=== PATIENT | male | born 1990 | race Caucasian/White ===

== ENCOUNTER 2019-03-21 23:59 | Emergency (ER) | payer MEDICAID, SELFPAY ==
[2019-03-21 23:59] VITALS: BP 130/87; PULSE 76; RESP 15; TEMP 36.4; O2SAT 97; BMI 26.4
--- NOTE | 2019-03-22 00:34 | ED.VISSUMM ---
- ER Visit Summary Date of Service: 03/22/19 Chief Complaint: Abdominal pain History of Present Illness: The patient is a 29 M with lower abdominal pain. The pain is over his lower hemiabdomen and does not radiate. It started yesterday, and has been constant. He said he never had this before. Associated with diarrhea. He had a recent upper respiratory infection and was diagnosed with influenza. He was not on antibiotics. He denies any bleeding. Denies vomiting. Denies any fevers. Denies urinary symptoms. Denies back pain. Denies weakness or numbness, but he does have bilateral hip pain which she attributes to dry heaving. Denies trauma. Physical Examination: Afebrile and vital signs unremarkable. Alert and oriented. No acute distress. Heart regular. Lungs clear. Abdomen is tender of the lower hemiabdomen. No guarding or rebound. Skin appears normal without jaundice or pallor. Normal gait. No shortening or abnormal rotation of his legs. Good range of motion. Test Results: Labs, urine, CT were ordered. Emergency Department Course and Treatment: Patient presents with lower abdominal pain and GI symptoms. He is tender. I am concerned for diverticulitis, appendicitis, and other GI pathology. We will also check urine. I ordered fluids, morphine, and Zofran while awaiting results. I was notified by nursing that the patient did not want to stay, and did not want testing. He was alert and oriented. He voiced understanding that we were concerned for diverticulitis and appendicitis. Patient did not receive any medication or testing. Patient signed out AGAINST MEDICAL ADVICE. Treatment Plan: As above Disposition: AGAINST MEDICAL ADVICE Impression: 1. Abdominal pain This note was generated with [employer] dictation software. It may contain incorrect words, spelling, and punctuation that were not noted in review of the chart prior to signing ED Disposition - Plan for ED Patient: Referrals: Jian Brennan MD [Primary Care Provider] -
--- NOTE | 2019-03-22 00:35 | ED.RN ---
This RN went in to start IV and fluids as PTs assigned nurse was off the floor. PT initially refused IV fluids and ultimately all testing. Spoke with Dr. Johnson who was concerned about an appendicitis or diverticulitis. said to have PT sign out AMA. Discussed with PT standard protocols and orders for abdominal pain. PT stated I knew I should have gone to [place]. PT then stated he wanted to go to [facility] and get a laxative. AMA paperwork signed by , myself and PT. PT received a copy, ambulated to [facility] with a steady and independent gait.
== END 2019-03-22 00:35 | disposition left against medical advice (07) ==
LOC: ED 03-22 00:46
PROVIDERS: Emergency Provider Emergency Medicine; PCP Family Medicine
DX: R10.30 Lower abdominal pain, unspecified (principal); Z72.0 Tobacco use

== ENCOUNTER 2019-07-09 08:55 | Observation (INO) | payer MEDICAID, SELFPAY ==
[2019-07-09] VITALS (11 sets, daily range): BP systolic 97–125; BP diastolic 55–84; PULSE 83–109; RESP 16–20; TEMP 36.5–37.3; O2SAT 93–104; BMI 25.1
--- NOTE | 2019-07-09 09:16 | CT_ITS ---
We are attempting to reach an attending provider to discuss findings. An addendum with communication details will be sent when the communication is complete. STUDY: CT ABDOMEN AND PELVIS WITH CONTRAST REASON FOR EXAM: Male, 29 years old. RLQ PAIN RADIATION DOSAGE (If Supplied By Facility): CTDIvol = ( 11.62 ) mGy, DLP = ( 789.10 ) mGycm TECHNIQUE: Transaxial images were obtained from the dome of the diaphragm to the symphysis pubis without oral contrast. 100ml isovue 300 was administered. Sagittal and coronal images were reconstructed. Individualized dose optimization techniques were used for this CT. COMPARISON: None. FINDINGS: There is decreased attenuation of the liver consistent with steatosis. Normal gallbladder and extrahepatic biliary system. Normal spleen. Normal pancreas. Normal bilateral adrenal glands. Normal right kidney. Normal left kidney. Normal visualized stomach. Normal small intestine. The colon demonstrates thickening at the cecum and appendiceal orifice there is thickening of the appendix up to 12 mm. There is surrounding trace amount of free fluid. Findings are consistent with appendicitis. There is no evidence of perforation or abscess Normal abdominal aorta. Normal inferior vena cava. Normal retroperitoneum. Normal urinary bladder. Normal abdominal wall. Normal osseous structures. CT/Abdomen/Pelvis WITH Contrast IMPRESSION: Cecum and appendiceal thickening with surrounding edema. Leading differential consideration is acute appendicitis. There is no evidence of perforation or abscess Electronically Signed: Fatimah Hernandez MD at 12:15 EDT Tel , Service support ,
--- NOTE | 2019-07-09 09:18 | ED.DCSUM_ITS ---
- ER Visit Summary Date of Service: 07/09/19 Chief Complaint: Abdominal pain History of Present Illness: The patient is a 29 M presenting with abdominal pain. He states this started this morning. He has had nausea and vomiting. Denies diarrhea or constipation. Pain is in the lower abdomen. Denies fever. No other complaints. Physical Examination: Vitals are stable. Patient is afebrile. Alert no acute distress. HEENT exam is unremarkable. Neck is supple. Lungs are clear and equal bilaterally. Heart is regular rate and rhythm. Abdomen is soft bilateral lower quadrant tenderness with voluntary guarding, no rebound Extremities are unremarkable. Skin is warm and dry. Remainder of exam is unremarkable. Emergency Department Course and Treatment: Patient given IV fluids, morphine, Zofran. CBC shows white count 12.5. Chemistries unremarkable other than glucose 136. Liver lipase are normal. Urinalysis shows 0-5 white blood cells, [address] abdomen/pelvis shows cecum and appendiceal thickening with surrounding edema. Leading differential consideration is acute appendicitis. There is no evidence of perforation or abscess. Patient was given Zosyn IV. COVID is ordered and is pending. Discussed with Dr. Pugh and patient will be admitted. Disposition: Admission Impression: Acute appendicitis This note was generated with [employer] dictation software. It may contain incorrect words, spelling, and punctuation that were not noted in review of the chart prior to signing ED Disposition - Plan for ED Patient: Referrals: Jian Brennan MD [Primary Care Provider] -
[2019-07-09 09:29] LABS: Absolute Lymphocyte Count 1.28 X10^3/uL (0.83-4.51); Absolute Neutrophil Count 10.3 X10^3/uL (2.0-7.7); Basophil# 0.05 X10^3/uL; Basophil% 0.4 % (0-1); Eosinophil# 0.08 X10^3/uL; Eosinophils% 0.6 % (0-5); Hematocrit 51.3 % (40-54); Hemoglobin 16.3 g/dL (13.0-16.5); Lymphocyte # 1.28 X10^3/ul (4.0); Lymphocyte % 10.2 % (19-41); Mean Corp Hgb Conc 31.8 g/dL (32-36); Mean Corpuscular Hgb 28.6 pg (27.0-32.0); Mean Platelet Vol. 11.2 fl (6.2-12.0); Monocyte# 0.74 X10^3/uL; Monocyte% 5.9 % (0-10); NRBC Flagged by Analyzer 0 % (0-5); Neutrophil # 10.31 X10^3/uL (2.7-7.7); Neutrophil % 82.6 % (47-70); Platelet Count 199 K/mm3 (150-450); RBC Distribution Width CV 13.4 % (11.6-14.6); White Blood Count 12.5 K/mm3 (4.4-11.0)
[2019-07-09] MEDS: 0.9% Normal Saline 1,000 ML 1000 ML IV (09:32)
[2019-07-09] MEDS: Ondansetron 4 MG/2 ML Vial IV (09:32)
[2019-07-09] MEDS: Morphine 4 MG/ML Syringe IV (09:32)
[2019-07-09 09:40] LABS: Red Blood Cells-Urine 0 SEEN /hpf (0-5)
[2019-07-09 09:42] LABS: ALB/GLOB Ratio 1.1 RATIO (0.9-2.4); AST(SGOT) 19 U/L (15-37); Alanine Aminotransfer ALT/SGPT 29 U/L (16-61); Albumin, Serum 3.8 g/dL (3.2-5.0); Alkaline Phosphatase 80 U/L (45-117); Anion Gap 3 (5-15); BUN 15 mg/dL (7-18); BUN/Creat Ratio 16.1 RATIO (10-20); Calcium,Total 9.2 mg/dL (8.5-10.1); Chloride 106 mmol/L (98-107); Creatinine, Serum 0.93 mg/dL (0.70-1.30); EST Glomerular Filtration Rate 101 mL/min (>60); Est Glom Filt Rate - Afr Amer 123 mL/min (>60); Estimated Creatinine Clearance 124.83 ml/min; Globulin 3.6 g/dL (2.2-4.2); Glucose 136 mg/dL (74-106); Lipase 85 U/L (73-393); Potassium 4.1 mmol/L (3.5-5.1); Protein, Total 7.4 g/dL (6.4-8.2); Sodium Level 139 mmol/L (136-145)
[2019-07-09 09:42] LABS: Color, Urine Yellow (Yellow); Glucose, Dipstick Normal (Normal); Ketone-Dipstick Negative (Negative); Leukocyte Esterase-Dipstick 25 /ul (Negative); Nitrite-Dipstick Negative (Negative); Occult Blood-Urine Negative /ul (Negative); Protein-Dipstick 15 mg/dl (Negative); Urine Bilirubin Dipstick Negative (Negative); Urine Clarity Sl. Cloudy (Clear); Urine Urobilinogen 1 mg/dl (Normal)
[2019-07-09 09:49] LABS: Bacteria 1+ /hpf (None Seen); Mucous, Urine 3+ /hpf (<or=2+); Squamous Epithelial Cells - UA 0-5 SEEN /hpf (0-5); White Blood Cells 0-5 SEEN /hpf (0-5)
--- NOTE | 2019-07-09 12:34 | NURSING ---
med surg obs appendicitis pritchett
--- NOTE | 2019-07-09 13:47 | HP.PCM_ITS ---
History and Physical Date of Admission: 07/09/19 Chief Complaint: abdominal pain History of Present Illness: 29 y/o WM presents with < 24 hour history of abdominal pain, mainly in the right lower quadrant, but he states that it is all over. Started at 2 am this morning Also with nausea. Presented to ED at [facility]. Found to have elevated WBC of 12.5K with left shift of differential. CT scan - The colon demonstrates thickening at the cecum and appendiceal orifice there is thickening of the appendix up to 12 mm. There is surrounding trace amount of free fluid. Findings are consistent with appendicitis. There is no evidence of perforation or abscess Past Medical History: ADHD Past Surgical History: left arm fracture pinning Medications: denies Allergies: Has no known drug allergies Social history: TOB use yes Review of Systems: General - denies fevers Cardiovascular denies chest pain, denies history of heart attack, Pulmonary denies shortness of breath, denies coughing up blood Gastrointestinal as per HPI, denies blood in stools Neurological denies numbness/weakness of extremities, denies seizures, denies history of head trauma, denies history of stroke Genitourinary denies burning with urination, denies blood in urine Hematological denies spontaneous/prolonged bleeding Skin denies open nonhealing wounds Musculoskeletal had left arm fracture in past Endocrine denies diabetes Psychological denies hallucinations Physical examination: Vital signs Temp 98.2 BP 101/72 RR 18 HR 106 General WD/WN WM in no apparent distress, alert and oriented, not septic appearing HEENT Normocephalic. EOM intact with sclera clear and no icterus noted. Neck is supple with no jugular venous distention noted. Trachea is midline. Lungs no labored breathing noted, such as retractions. No cough heard. Heart regular. Abdomen soft but tender - mainly right lower quadrant, with rebound ten derness, decreased bowel sounds Extremities no calf tenderness noted. No pitting edema noted. Genitourinary/Rectal deferred Skin normal skin integrity. Neurological non focal. Psychological normal affect, patient is calm and appropriate Impression: appendicitis by CT scan Discussion/Plan: I have discussed the above with the patient. I have offered the patient the procedure of laparoscopic appendectomy. I have explained the procedure to the patient. I have counseled the patient as to the risks of the procedure, including but not limited to: infection, bleeding, injury to any blood vessels/nerves, scar tissue, injury to any intrabdominal organs, injury to kidney/ureters, injury to bowel/bladder,intraabdominal abscess/bleeding, hernias at incisional sites, wound infections, possible open procedure, complications of anesthesia, postoperative pneumonia/cardiac problems/blood clots etc. the patient understands. He has been counseled that undergoing surgery at this time would increase his susceptibility to COVID. He agrees to proceed. I have answered all questions to the patient?s satisfaction and the patient has no further questions. Essential Procedure Criteria Procedure Essential: Yes Criteria Note: On 04/29/2019 the [place] Department of [facility] ([facility]) Public Order signed by [facility] Director Kiersten Gonzalez M.D., regarding the Management of Non- Essential Surgeries and Procedures for the purpose of preserving Personal Protective Equipment (PPE) and critical hospital capacity and resources within [place] went into effect as of 04/30/2019 at 5:00PM. According to the [facility] Public Order: This action will remain in full force and effect until the State of Emergency declared by the Governor no longer exists or the Director of the [facility] rescinds or modifies this Order.. This [facility] order stated all non-essential or elective surgeries and procedures that utilize PPE should be delayed unless there is undue risk to the current or future health of a patient. After reviewing the aforementioned [facility] Public Order and the patients clinical case, I have determined that the scheduled procedure meets the criteria to go forward. Risk to Patient if Procedure Delayed: Risk of rapidly worsening to severe symptoms
--- NOTE | 2019-07-09 16:16 | DCINST_ITS ---
Discharge Diet: No Restrictions - avoid carbonated beverages, it will bloat you and make you feel uncomfortable - avoid it for a couple of days Drink lots of fluids Discharge Activity: Return to Normal Activity, May not drive while taking narcotic pain medications. Lifting Restrictions: no lifting greater than 20 pounds for two weeks Call your doctor if your incision/area has: Continuous Slow Oozing, Foul Smelling Discharge Call your doctor if you observe: Fever of 101 or Higher Additional Dressing/Incision Instructions:: Leave dressings in place. May get wet in shower. Do not soak - no tub baths/swimming Medications to take at Discharge Hydrocodone/Acetaminophen [[place] 5-325 Tablet] 1 ea PO Q8H PRN 5 Days #15 tab 07/09/19 Melatonin 10 mg SL QHS 07/09/19 Allergies/Adverse Reactions: Allergies No Known Allergies Allergy (Verified 07/09/19 08:55) The following prescriptions were given: Hydrocodone/Acetaminophen [[place] 5-325 Tablet] 1 ea PO Q8H PRN 5 Days #15 tab PRN Reason: Pain Score 4-10/10 Transmission Status: Received by [id number] Primary Care Physician: Jian Brennan MD [Primary Care Provider] - Test Results: Test results from this visit will be discussed in further detail at your follow- up appointment, if applicable. Please Follow Up With: Abi Pugh MD - When: a virtual visit appointment will be set up by my office
[2019-07-09] MEDS: Bupiv/Epi 0.25% 30 ML Vial (16:57)
--- NOTE | 2019-07-09 17:01 | OP.PCM_ITS ---
Report of Operation Date of Procedure: 07/09/19 Pre-Operative Diagnosis: acute appendicitis Post-Operative Diagnosis: same as above - not perforated Surgery/Procedure Performed:: laparoscopic appendectomy Description of Surgical Findings:: acute appendicitis - not perforated Type of Anesthesia:: General Anesthesiologist: Krzysztof Smiht Specimen's removed: appendix Estimated Blood Loss (mL): minimal Fluids Replaced: 700 ml RL Description of Procedure: After informed consent was obtained, the patient was brought into the Operating Room. Appropriate time out protocol was followed. The patient was placed in the supine position on the operating table. The patient was then placed under general anesthesia. The patient?s abdomen was then prepped with a sterile surgical skin preparation and sterile surgical drapes were placed. The infraumbilical skin fold was grasped with penetrating clamps and the skin and subcutaneous tissues were infiltrated with 0.25% marcaine with epinephrine. A transverse skin incision was then made. A Veress needle was then inserted into the intraabdominal cavity and checked to be in the proper position with a normal saline drop test. A CO2 pneumoperitoneum was then created. Once this was achieved, the Veress needle was removed and a 5 mm trocar was placed in its stead. A 5 mm laparoscope was then inserted into the trocar. Careful examination of the intraabdominal contents was then done. There was no evidence of injury to any internal organs from placement of the Veress needle or the trocar. Under direct visualization, a 12mm suprapubic trocar and a 5mm left lower quadrant trocar was then placed into the intraabdominal cavity. The skin and subcutaneous tissues at these sites were first infiltrated with 0.25% marcaine with epinephrine. Attention was then directed to the right lower quadrant. The appendix was visualized. There was no evidence of perforation, it was grossly enlarged and there was fibrinous exudate present. The mesentery of the appendix was taken down by cauterizing the tissue from the free edge to the base of the appendix with the Harmonic scalpel. Once the base of the appendix was freed of surrounding tissues, then the linear gastrointestinal stapling device was brought into the abdominal cavity via the 12mm port and placed across the base of the appendix. The stapling device was fired, thus stapling across the base of the appendix and transecting it simultaneously. The appendix was then placed in an Endobag and this was brought out through the suprapubic trocar. The appendix was then forwarded to Pathology for analysis. The appendiceal stump was carefully examined. There was no evidence of any acti ve bleeding or fecal leakage. The surrounding tissues were also examined and there was no evidence of any active bleeding or fecal/bile leakage. The intraabdominal cavity was examined and there was no evidence of further inflammation or tissue abnormality. There was no evidence of any peritoneal fluid. The CO2 pneumoperitoneum was released and all trocars were removed intact. The suprapubic fascia was reapproximated with a figure-of-8 vicryl suture. All skin incisions were reapproximated with monocryl suture. Cavilon and steristrips were applied to reinforce skin closure and proper sterile dressings were placed. The patient was then extubated and brought to the Recovery Room in stable condition. - Complications none noted - Admit VTE Documentation VTE Present on Admission: Yes VTE Mechan Device Prophylaxis: SCD's
[2019-07-09] MEDS: Lactated Ringers 1,000 ML 75 ML IV (18:51)
--- NOTE | 2019-07-10 | APP_PTH ---
PATIENT: DAVID HENNING LOC: MS3 U#:[id number] AGE/SX: 29/M ROOM: WA316 RE07/09/[address]: Dr. Abi Pugh MD : 1990 BED: 1 DIS: 07/10/2019 SPEC #: [id number] RECD: 07/10/19 10:49 STATUS: JHONNY REQ #: [id number] DANA: 07/10/19 00:[address]: Abi Pugh DEPT: SURGICAL PATHOLOGY RECD BY: Ulisses Terrazas ENTERED: 07/10/19 10:49 SP TYPE: APPENDIX OTHR DR: Dr. Jian Brennan MD Tissues: Appendix, NOS Procedures: Surgery Specimen Level III HEADER OPERATION: Laparoscopic appendectomy PRE-OP DIAGNOSIS: Acute appendicitis TISSUE SUBMITTED: Appendix MICROSCOPIC DIAGNOSIS Appendix, appendectomy: Acute necrotizing appendicitis. Acute serositis. AM:josette 07/11/19 MICROSCOPIC DESCRIPTION Slides are reviewed. GROSS DESCRIPTION Received is one container labeled with the patient's name and designated appendix. The specimen consists of an appendix measuring 5 cm in length and up to 0.7 cm in diameter. The serosa is congested and covered focally with nassar, purulent exudate. No obvious perforation is identified. The lumen is pinpoint. No fecalith is identified. Doctor Of Dental Surgery sections are submitted in one cassette. / SJ:rg 07/10/19 TC:2 CPT: 36113
[2019-07-10 00:42] VITALS: BP 108/66; PULSE 82; RESP 16; TEMP 36.8; O2SAT 98
[2019-07-10] MEDS: HYDROcodone Bitartrate/Apap 5/325 Tablet PO ×2 (00:46→09:55)
[2019-07-10 04:53] VITALS: BP 104/59; PULSE 78; RESP 16; TEMP 36.4; O2SAT 95
--- NOTE | 2019-07-10 04:59 | NURSING ---
pt walked in the [place] with the weighmaster lead. tolerated well
[2019-07-10 08:00] VITALS: RESP 18
[2019-07-10 10:24] VITALS: BP 111/70; PULSE 85; RESP 16; TEMP 36.9; O2SAT 98
== END 2019-07-10 10:30 | disposition home or self-care (01) ==
LOC: ED 12:35 → MS3 13:57
PROVIDERS: Admitting Provider Surgery; Emergency Provider Emergency Medicine; PCP Family Medicine; Visit Provider Surgery
PROC: 0DTJ4ZZ Resection of Appendix, Percutaneous Endoscopic Approach (ICD-10-PCS; CPT 44970; principal; 2019-07-09 15:40)
DX: K35.80 Unspecified acute appendicitis (principal); F90.9 Attention-deficit hyperactivity disorder, unspecified type; Z79.899 Other long term (current) drug therapy; F17.200 Nicotine dependence, unspecified, uncomplicated
CPT/HCPCS: 44970; 74177; 80053; 81001; 83690; 85025; 87635; 88304; 96361; 96365; 96375; 99284; 99406; J7030; J7120; Q9967; A4216; J2405; U0004

== ENCOUNTER 2023-08-06 08:04 | Emergency (ER) | payer MEDICAID, SELFPAY ==
[2023-08-06 08:05] VITALS: BP 134/95; PULSE 97; RESP 16; TEMP 36.4; O2SAT 97; BMI 25.4
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
[2023-08-06 08:58] LABS: Absolute Lymphocyte Count 2.37 X10^3/uL (0.83-4.51); Absolute Neutrophil Count 5.8 X10^3/uL (2.0-7.7); Basophil# 0.06 X10^3/uL; Basophil% 0.7 % (0-1); Eosinophils% 1.1 % (0-5); Hematocrit 47.9 % (40-54); Hemoglobin 16.2 g/dL (13.0-16.5); Lymphocyte # 2.37 X10^3/ul (0.83-4.51); Lymphocyte % 26.3 % (19-41); Mean Corp Hgb Conc 33.8 g/dL (32-36); Mean Corpuscular Hgb 29.5 pg (27.0-32.0); Mean Corpuscular Volume 87.1 fL (80-94); Mean Platelet Vol. 11.9 fl (6.2-12.0); Monocyte# 0.62 X10^3/uL; Monocyte% 6.9 % (0-10); NRBC Flagged by Analyzer 0 % (0-5); Neutrophil # 5.83 X10^3/uL (2.7-7.7); Neutrophil % 64.7 % (47-70); Platelet Count 209 K/mm3 (150-450); RBC Distribution Width CV 13.2 % (11.6-14.6); RBC Distribution Width SD 41.9 fl (35.1-43.9)
[2023-08-06 09:37] LABS: Anion Gap 4 (5-15); BUN 7 mg/dL (7-18); BUN/Creat Ratio 7.5 RATIO (10-20); Calcium,Total 9.2 mg/dL (8.5-10.1); Chloride 105 mmol/L (98-107); Creatinine, Serum 0.93 mg/dL (0.70-1.30); EST Glomerular Filtration Rate 99 mL/min (>60); Est Glom Filt Rate - Afr Amer 120 mL/min (>60); Estimated Creatinine Clearance 120.33 ml/min; Glucose 94 mg/dL (74-106); Sodium Level 138 mmol/L (136-145); Thyroid Stim Hormone (TSH) 0.74 uIU/mL (0.358-3.74)
[2023-08-06] MEDS: Potassium Chloride Oral Tablet 20 MEQ 40 MEQ PO (10:02)
[2023-08-06] MEDS: hydrOXYzine PAM 25 MG Capsule PO (10:02)
== END 2023-08-06 10:12 | disposition home or self-care (01) ==
PROVIDERS: Emergency Provider Emergency Medicine; PCP Family Medicine; Visit Provider Emergency Medicine
DX: F41.9 Anxiety disorder, unspecified (principal); F17.210 Nicotine dependence, cigarettes, uncomplicated; R51.9 Headache, unspecified; Z79.899 Other long term (current) drug therapy
CPT/HCPCS: 80048; 84443; 85025; 99283